=== PATIENT | male | born 1985 | race Caucasian/White ===

== ENCOUNTER 2020-09-03 20:46 | Emergency (ER) | payer OTHER ==
[~2020-09-03] VITALS: Ht 193 cm; Wt 136.1 kg
[2020-09-03] MEDS ORDERED: ACID CONTROLLER20 MG PO (20:52)
[2020-09-03] MEDS ORDERED: IBUPROFEN 800800 MG PO (22:27)
[2020-09-03] MEDS ORDERED: CEPHALEXIN500 MG PO (22:27)
[2020-09-03] MEDS ORDERED: ACETAMINOPHEN-1 EAC2 PO (22:27)
[2020-09-03 22:41] VITALS: BP 144/79
== END 2020-09-03 22:41 | disposition home or self-care (01) ==
LOC: M.ERS 20:46
DX: S61.411A Laceration without foreign body of right hand, initial encounter (principal); W54.0XXA Bitten by dog, initial encounter; Y93.89 Activity, other specified; Y92.89 Other specified places as the place of occurrence of the external cause; Y99.8 Other external cause status